=== PATIENT | male | born 1995 | race Caucasian/White ===

== ENCOUNTER 2016-12-25 17:21 | Emergency (ER) | payer BC, OTHER ==
[2016-12-25 20:37] VITALS: BP 115/53
--- NOTE | 2016-12-25 20:58 | ED ---
Throat Pain/Nasal Congestion - HPI Summary HPI Summary: Patient presents with CC of sinus pressure, left ear pain, intermittent 5/10 OLIVEIRA and dizziness x 3 days, and nausea. Denies vomiting. Denies C/D. Denies fevers, sweats or chills. He has been otherwise healthy. however has been not eating well stating he has had TV dinners every night. Works at [employer] and had to leave early. Denies eye pain, blurry vision, double vision or neck stiffness. Slight sensitivity to light. Denies phonophobia. Denies abdominal pain or weakness. Denies urinary symptoms. Takes a daily caffeine pill in the morning, but has been taking that for 1 month in attempt to lose weight. Denies cough or sputum production. Eating and drinking OK. - History of Current Complaint Chief Complaint: EDGeneral Time Seen by Provider: 12/25/16 18:33 Hx Obtained From: Patient Onset/Duration: Sudden Onset Severity: Mild Associated Signs And Symptoms: Positive: Sinus Discomfort - Epiglottits Risk Factors Epiglottis Risk Factors: Negative - Allergies/Home Medications Allergies/Adverse Reactions: Allergies Allergy/AdvReac Type Severity Reaction Status Date / Time No Known Allergies Allergy Verified 10/21/12 19:27 PMH/Surg Hx/FS Hx/Imm Hx Previously Healthy: Yes Endocrine/Hematology History: Denies: Hx Anticoagulant Therapy, Hx Diabetes, Hx Thyroid Disease Cardiovascular History: Denies: Hx Hypertension, Hx Pacemaker/ICD Respiratory History: Denies: Hx Asthma, Hx Chronic Obstructive Pulmonary Disease (COPD) History: Denies: Hx Renal Disease Neurological History: Denies: Hx Dementia, Hx Seizures Psychiatric History: Denies: Hx Substance Abuse - Surgical History Surgery Procedure, Year, and Place: APPPENDECTOMY, WISDOM TEETH EXTRACTION - Immunization History Hx Pertussis Vaccination: No Immunizations Up to Date: Unable to Obtain/Confirm Infectious Disease History: No Infectious Disease History: Denies: Hx Hepatitis, Hx Human Immunodeficiency Virus (HIV), Traveled Outside the [place] in Last 30 Days - Social History Occupation: Employed Part-time Lives: With Family Alcohol Use: Occasionally Hx Substance Use: No Substance Use Type: Reports: None Hx Tobacco Use: No Smoking Status (MU): Never Smoked Tobacco Review of Systems Constitutional: Negative Eyes: Negative Positive: Other - sinus discomfort Cardiovascular: Negative Respiratory: Negative Genitourinary: Negative Positive: no symptoms reported, see HPI Musculoskeletal: Negative Skin: Negative Neurological: Other - dizziness Psychological: Normal All Other Systems Reviewed And Are Negative: Yes Physical Exam Triage Information Reviewed: Yes Vital Signs On Initial Exam: Initial Vitals Temp Pulse Resp BP Pulse Ox 97.6 F 65 20 145/92 99 12/25/16 17:34 12/25/16 17:34 12/25/16 17:34 12/25/16 17:34 12/25/16 17:34 Vital Signs Reviewed: Yes Appearance: Positive: Well-Appearing, Well-Nourished Skin: Positive: Warm, Skin Color Reflects Adequate Perfusion Head/Face: Positive: Normal Head/Face Inspection Eyes: Positive: EOMI, JONNY, Conjunctiva Clear ENT: Positive: Hearing grossly normal, Pharynx normal, TMs normal. Negative: Pharyngeal erythema, Nasal congestion, Nasal drainage, Tonsillar swelling, Tonsillar exudate, Muffled/hoarse voice, Dental tenderness Neck: Positive: Supple, Nontender, No Lymphadenopathy Respiratory/Lung Sounds: Positive: Clear to Auscultation, Breath Sounds Present. Negative: Tracheal Deviation, Wheezes, Unable to speak in full sentences Cardiovascular: Positive: Normal, RRR, Pulses are Symmetrical in both Upper and Lower Extremities Musculoskeletal: Positive: Normal, Strength/ROM Intact Neurological: Positive: Speech Normal Psychiatric: Positive: Normal AVPU Assessment: Alert - Argenis Coma Scale Coma Scale Total: 15 Diagnostics - Vital Signs Vital Signs Temp Pulse Resp BP Pulse Ox 12/25/16 19:45 98.1 F 58 16 115/53 98 12/25/16 17:34 97.6 F 65 20 145/92 99 - Laboratory Lab Statement: Any lab studies that have been ordered have been reviewed, and results considered in the medical decision making process. EENT Course/Dx - Course Course Of Treatment: Patient evaluated for sinus discomfort, dizziness and left ear pain x 3 days. Physical exam WNL. Patient is given meclizine, flonase for sinus pressure and congestion and allergy medication for feeling of fullness in the ears. He is encouraged to return if any of these symptoms become worse. VS stable. He looks well on physical exam and is eating and drinking OK. Afebrile at 98.3. - Differential Diagnoses Differential Diagnoses: Other - sinus pressure, dizziness, vertigo - Diagnoses Provider Diagnoses: Dizziness Discharge - Discharge Plan Condition: Stable Disposition: HOME Prescriptions: Fluticasone NASAL SPRAY 50MCG* [Flonase NASAL SPRAY 50MCG*] 2 spray BOTH NARES DAILY #1 btl Loratadine & Pseudoephedrine [Claritin-D 24 Hour 10-240 mg] 1 tab PO DAILY #15 tab Meclizine TAB* [Antivert 12.5 TAB*] 25 mg PO TID PRN #15 tab PRN Reason: Dizziness Patient Education Materials: Meclizine (By mouth), Acute Headache (ED), Dizziness (ED) Forms: *Work Release Referrals: Nate Aranda MD [Primary Care Provider] - Additional Instructions: Please follow up with your PCP or return to the ED if symptoms become worse. If you develop moderate to severe headaches, worsening dizziness, sinus pressure or nausea/vomiting - return to the ED immediately
== END 2016-12-25 19:45 | disposition home or self-care (01) ==
LOC: ED 17:21
DX: R42 Dizziness and giddiness (principal); J34.89 Other specified disorders of nose and nasal sinuses; R51 Headache; H92.02 Otalgia, left ear
CPT/HCPCS: 99281